=== PATIENT | male | born 1955 | race African-American/Black ===

== ENCOUNTER 2024-03-05 04:11 | Inpatient (IN) | payer MEDICARE, MEDICAID ==
[~2024-03-05] VITALS: Ht 172.7 cm; Wt 59.0 kg
[~2024-03-05 04:11] MED LIST: AMI2 PO; AMIO400T11 PO; AMLO10TA80 MT; ASPI-1497 MT; DOCU100T MT; FLUT1AER INH; FURO40TA5 PO; GABA-290 MT; HYDR-4009 MT; LISI-186 PO; MELO-106 MT; TIZA-204 MT; TRAZ-251 MT
[2024-03-05 05:43] LABS: BASOPHILS % 0.2 % (0.0-2.0); EOSINOPHILS % 1.3 % (0.0-5.0); HEMATOCRIT. 44.4 % (42.0-52.0); HEMOGLOBIN. 14.5 g/dL (14.0-18.0); LYMPHOCYTES % 19.1 % (20.0-50.0); MEAN CORPUSCULAR HEMOGLOBIN 29.7 pg (28.0-32.0); MEAN CORPUSCULAR HGB CONC 32.6 g/dL (31.0-37.0); MEAN PLATELET VOLUME 10.6 fl (7.4-10.4); MONOCYTES % 8.1 % (2.0-8.0); NEUTROPHILS % 71.3 % (40.0-76.0); PLATELET 202 x1000/uL (130-400); RED BLOOD CELL COUNT 4.89 mill/uL (4.7-6.1); RED CELL DISTRIBUTION WIDTH 13.7 % (11.6-14.6); WHITE BLOOD COUNT 8.3 x1000/uL (4.5-11.0)
[2024-03-05 05:48] LABS: CHLORIDE 109 mEq/L (98-107); POTASSIUM 3.3 mEq/L (3.5-5.1); SODIUM 143 mEq/L (136-145)
[2024-03-05 05:49] LABS: CARBON DIOXIDE 26 mEq/L (21-32)
[2024-03-05 05:50] LABS: CALCIUM 9.5 mg/dL (8.7-10.4)
[2024-03-05 05:53] LABS: INR 0.9; PROTHROMBIN TIME 10.6 sec (9.6-11.0)
[2024-03-05] MEDS ORDERED: IPRATROPIUM BROMIDE (0.02%) 0.5MG/2.5ML NEB HHN STA (05:53)
[2024-03-05] MEDS ORDERED: ALBUTEROL (0.083%) 2.5MG/3ML NEB HHN STA (05:53)
[2024-03-05 05:54] LABS: CREATININE 1.3 mg/dL (0.6-1.3); GLUCOSE 102 mg/dL (70-105)
[2024-03-05 05:55] LABS: UREA NITROGEN BLOOD 21 mg/dL (9-23)
[2024-03-05 05:57] LABS: TROPONIN I HIGH SENSITIVITY 50 ng/L (3.0-53)
[2024-03-05] MEDS: METHYLPREDNISOLONE SOD SUCC 125MG/2ML (ACT-O-VIAL) IV STA (06:40)
[2024-03-05] MEDS: LEVOFLOXACIN 500MG PREMIX 100 ML IV ONE (08:23)
[2024-03-05 08:28] LABS: TROPONIN I HIGH SENSITIVITY 36 ng/L (3.0-53)
[2024-03-05] MEDS: HYDROCODONE/ACETAMINOPHEN 10/325MG TABLET PO PRN (08:40)
[2024-03-05 09:13] LABS: BASOPHILS % 0.1 % (0.0-2.0); EOSINOPHILS % 0.3 % (0.0-5.0); HEMATOCRIT. 45.2 % (42.0-52.0); HEMOGLOBIN. 14.9 g/dL (14.0-18.0); LYMPHOCYTES % 8.2 % (20.0-50.0); MEAN CORPUSCULAR HEMOGLOBIN 29.7 pg (28.0-32.0); MEAN CORPUSCULAR VOLUME 89.8 fL (80.0-94.0); MEAN PLATELET VOLUME 10.1 fl (7.4-10.4); MONOCYTES % 2.6 % (2.0-8.0); NEUTROPHILS % 88.8 % (40.0-76.0); PLATELET 204 x1000/uL (130-400); RED BLOOD CELL COUNT 5.03 mill/uL (4.7-6.1); WHITE BLOOD COUNT 7.7 x1000/uL (4.5-11.0)
[2024-03-05 09:19] LABS: CARBON DIOXIDE 26 mEq/L (21-32); CHLORIDE 110 mEq/L (98-107); POTASSIUM 3.5 mEq/L (3.5-5.1); SODIUM 143 mEq/L (136-145)
[2024-03-05 09:20] LABS: CALCIUM 9.2 mg/dL (8.7-10.4)
[2024-03-05 09:24] LABS: CREATININE 1.1 mg/dL (0.6-1.3)
[2024-03-05 09:25] LABS: GLUCOSE 127 mg/dL (70-105); UREA NITROGEN BLOOD 18 mg/dL (9-23)
[2024-03-05 09:26] LABS: ALANINE AMINOTRANSFERASE 137 IU/L (10-49); ASPARTATE AMINOTRANSFERASE 75 IU/L (<34)
[2024-03-05 09:27] LABS: ALBUMIN 4.4 g/dL (3.2-4.8); BILIRUBIN TOTAL 0.9 mg/dL (0.1-1.0); PROTEIN TOTAL 6.8 g/dL (6.0-8.3)
[2024-03-05] MEDS: IPRATROPIUM BROMIDE (0.02%) 0.5MG/2.5ML NEB HHN NR (10:10)
[2024-03-05] MEDS: ALBUTEROL (0.083%) 2.5MG/3ML NEB HHN NR (10:11)
[2024-03-05 11:16] VITALS: PULSE 80; RESP 20; O2SAT 99
[2024-03-05] MEDS: KETOROLAC 15MG/ML VIAL IV PRN (14:51)
[2024-03-05] MEDS: FUROSEMIDE 40MG/4ML VIAL IVP SCH (16:37)
[2024-03-05 19:43] VITALS: BP 142/64; PULSE 71; RESP 16; TEMP 98.3
[2024-03-05 20:00] VITALS: BP 137/88; PULSE 87; RESP 18; TEMP 97.8
[2024-03-05] MEDS ORDERED: ACETAMINOPHEN 650MG/20.3ML UDC PO PRN (20:00)
[2024-03-05 21:07] VITALS: PULSE 87; RESP 20
[2024-03-05] MEDS: IPRATROPIUM/ALBUTEROL 0.5-3(2.5)MG/3ML NEB HHN SCH (21:07)
[2024-03-05] MEDS: ENOXAPARIN 40MG/0.4ML SYR SUBCUT SCH (21:16)
[2024-03-05] MEDS: NITROGLYCERIN OINT 1GM/INCH UDPKT TD SCH (21:17)
[2024-03-06] VITALS (8 sets, daily range): BP systolic 121–144; BP diastolic 77–88; PULSE 84–111; RESP 18–21; TEMP 97.8–98.6; O2SAT 97–98
[2024-03-06] MEDS: ACETAMINOPHEN 325MG TABLET PO PRN (01:09)
[2024-03-06] MEDS ORDERED: NALOXONE HCL 0.4MG/ML VIAL IV PRN (02:15)
[2024-03-06] MEDS: HYDROCODONE/ACETAMINOPHEN 10/325MG TABLET PO PRN (02:33)
[2024-03-06] MEDS: AMLODIPINE 10MG TABLET PO SCH (10:56)
[2024-03-06] MEDS: DOCUSATE SODIUM 250MG CAPSULE PO SCH (10:56)
[2024-03-06] MEDS: LISINOPRIL 5MG TABLET PO SCH (10:56)
[2024-03-06] MEDS: FUROSEMIDE 40MG/4ML VIAL IVP NR (14:30)
[2024-03-06] MEDS ORDERED: FURO-152 MT (14:34)
[2024-03-06] MEDS ORDERED: IPRA3AMP9 NEB (14:34)
[2024-03-06] MEDS ORDERED: NITR0.4T49 SL (15:59)
== END 2024-03-06 15:45 | disposition home or self-care (01) | DRG 291 ==
LOC: ER 04:11 → 5WST 08:01 → EDBEDREQ 08:08 → EDBEDREQTM 08:08 → 7EST 17:02
PROVIDERS: ADMIT Internal Medicine; ATTEND Internal Medicine
DX: I11.0 Hypertensive heart disease with heart failure (principal); I50.23 Acute on chronic systolic (congestive) heart failure; E87.6 Hypokalemia; F14.90 Cocaine use, unspecified, uncomplicated; J44.9 Chronic obstructive pulmonary disease, unspecified; R09.02 Hypoxemia; F17.200 Nicotine dependence, unspecified, uncomplicated; Z79.899 Other long term (current) drug therapy
CPT/HCPCS: 36415; 71045; 80048; 80053; 83880; 84484; 85025; 93005; 94640; 99285; J1650; J1885; J1940; J1956; J2919

== ENCOUNTER 2024-03-15 13:13 | Emergency (ER) | payer MEDICARE, MEDICAID ==
[~2024-03-15] VITALS: Ht 165.1 cm; Wt 60.0 kg
[~2024-03-15 13:13] MED LIST changes: +FURO-152 MT; +IPRA3AMP9 NEB; +NITR0.4T49 SL
[2024-03-15 13:39] VITALS: BP 112/79; PULSE 95; RESP 18; TEMP 98.1; O2SAT 100
[2024-03-15 14:01] LABS: BASOPHILS % 0.2 % (0.0-2.0); EOSINOPHILS % 1.9 % (0.0-5.0); HEMATOCRIT. 38.4 % (42.0-52.0); HEMOGLOBIN. 12.5 g/dL (14.0-18.0); LYMPHOCYTES % 27.8 % (20.0-50.0); MEAN CORPUSCULAR HEMOGLOBIN 29.1 pg (28.0-32.0); MEAN CORPUSCULAR HGB CONC 32.4 g/dL (31.0-37.0); MEAN CORPUSCULAR VOLUME 89.7 fL (80.0-94.0); MEAN PLATELET VOLUME 8.8 fl (7.4-10.4); MONOCYTES % 8.7 % (2.0-8.0); NEUTROPHILS % 61.4 % (40.0-76.0); PLATELET 241 x1000/uL (130-400); RED BLOOD CELL COUNT 4.29 mill/uL (4.7-6.1); WHITE BLOOD COUNT 5.8 x1000/uL (4.5-11.0)
[2024-03-15 14:14] LABS: CHLORIDE 109 mEq/L (98-107); SODIUM 142 mEq/L (136-145)
[2024-03-15 14:15] LABS: CARBON DIOXIDE 26 mEq/L (21-32)
[2024-03-15 14:16] LABS: CALCIUM 8.9 mg/dL (8.7-10.4)
[2024-03-15 14:20] LABS: CREATININE 1.2 mg/dL (0.6-1.3); GLUCOSE 87 mg/dL (70-105)
[2024-03-15 14:21] LABS: TROPONIN I HIGH SENSITIVITY 30 ng/L (3.0-53); UREA NITROGEN BLOOD 13 mg/dL (9-23)
== END 2024-03-15 16:05 | disposition home or self-care (01) ==
LOC: ER 13:13
DX: M54.9 Dorsalgia, unspecified (principal); I11.0 Hypertensive heart disease with heart failure; I50.9 Heart failure, unspecified; J44.1 Chronic obstructive pulmonary disease with (acute) exacerbation; Z79.899 Other long term (current) drug therapy; Z79.82 Long term (current) use of aspirin; Z98.890 Other specified postprocedural states; V49.9XXA Car occupant (driver) (passenger) injured in unspecified traffic accident, initial encounter; Y93.89 Activity, other specified; Y92.89 Other specified places as the place of occurrence of the external cause; Y99.8 Other external cause status
CPT/HCPCS: 36415; 71045; 80048; 84484; 85025; 93005; 99285